=== PATIENT | male | born 1975 | race Caucasian/White ===

== ENCOUNTER 2017-12-24 21:07 | Observation (INO) ==
[2017-12-24 21:25] LABS: Bilirubin,Urine Negative (Negative); Blood,Urine Negative (Negative); Clarity,Urine Clear (Clear); Color,Urine Yellow (Yellow); Glucose,Urine (UA) Normal (Normal); Ketones,Urine 40 mg/dL (Negative); Leukocyte Esterase,Urine Negative (Negative); Nitrite,Urine Negative (Negative); PH,Urine 5.5 pH Units (5.0-8.0); Protein,Urine Negative (Neg-Trace); Specific Gravity,Urine 1.024 (1.010-1.025); Urobilinogen,Urine Normal (Normal)
--- NOTE | 2017-12-24 23:04 | Emergency Department Note ---
Disposition Clinical Impression: Pulmonary nodule Acute appendicitis Qualifiers: Acute appendicitis type: unspecified acute appendicitis type Qualified Code(s) : K35.80 - Unspecified acute appendicitis Disposition: Admitted As Inpatient Condition: Good Referrals: Kj Haley MD [Primary Care Provider] - Forms: ED Satisfaction Letter, Work/School Release Time of Disposition: 00:53 Abdominal Pain HPI - General Chief Complaint: ED Abdominal Pain Stated Complaint: abdominal pain Time Seen by Provider: 12/24/17 21:35 Source: patient Mode of arrival: ambulatory Limitations: no limitations Nursing Notes Reviewed: Yes Vital Signs Reviewed: Yes - History of Present Illness HPI Narrative: 42-year-old male otherwise healthy presents emergency department with abdominal pain. He reports a gradual onset pain located in the right lower quadrant sharp in nature nonradiating. Nothing seems to make it better. Worse with palpation and certain movements. He has taken alleve with minimal relief. Denies prior history of this. Denies injury or trauma to the area. Denies fever chills nausea or vomiting. Denies any urinary symptoms. No prior abdominal surgeries. Pt Subjective Complaint: abdominal pain Pain Scale: 8 - Related Data Home Medications Medication Instructions Recorded Confirmed Simvastatin [Zocor] 10 mg PO 12/24/17 Allergies Allergy/AdvReac Type Severity Reaction Status Date / Time No Known Allergies Allergy Verified 12/24/17 21:16 All systems ED: reviewed and negative except as stated. Review of Systems: As Per HPI Constitutional: Denies: fever, chills Cardiovascular: Denies: chest pain Respiratory: Denies: dyspnea Gastrointestinal: Reports: abdominal pain. Denies: nausea, vomiting, diarrhea Genitourinary: Denies: urgency, dysuria Musculoskeletal: Denies: back pain Integumentary: Denies: rash, abrasion Abdominal Pain PMH - Past Medical History Medical history: Reports: no medical history Psychiatric history: Reports: depression - Social History Smoking status: Never smoker Alcohol use: Reports: occasionally Drug use: Reports: none Physical Exam - General Limitations: no limitations General appearance: alert, in no apparent distress - Head Head exam: atraumatic, normocephalic, normal inspection - Eye Eye exam: Present: normal appearance, PERRL, EOMI. Absent: scleral icterus - ENT ENT exam: normal exam, normal oropharynx, mucous membranes moist - Neck Neck exam: Present: normal inspection, full ROM, trachea midline - Chest Chest inspection: Present: normal inspection, symmetric chest wall rise - Respiratory Respiratory exam: Present: normal lung sounds bilaterally - Cardiovascular Cardiovascular exam: Present: regular rate, normal rhythm, normal heart sounds - Abdominal Exam Abdominal exam: Present: soft, tenderness, guarding (Mild), normal bowel sounds , Rovsing's sign, tenderness at McBurney's Point. Absent: distention, rebound, rigidity Abdominal tenderness: Present: RLQ - Extremities Exam Extremities exam: Present: normal inspection, full ROM. Absent: tenderness, pedal edema - Back Exam Back exam: Present: normal inspection, full ROM, CVA tenderness (R). Absent: tenderness, CVA tenderness (L) - Neurological Exam Neurological exam: Present: alert, oriented X3 - Psychiatric Psychiatric exam: Present: normal affect, normal mood - Skin Skin exam: Present: warm, dry, intact, normal color. Absent: rash, cyanosis, diaphoresis Course Course Narrative: Patient presents with right lower quadrant pain 10 hours prior to arrival. Positive McBurney with Rovsing sign. No prior abdominal surgeries. No nausea or vomiting. Concern for appendicitis. Patient defers pain medication at this time. - Reevaluation(s) Reevaluation #1: The CT scanned shows acute appendicitis but also a pulmonary nodule on the right lower lobe. Patient does not smoke. He is informed of the incidental finding and recommended to follow up with his primary care physician - Consultations Consultation #1: CT confirms appendicitis. Patient continues to have some discomfort to the right lower quadrant. No distention or rigidity. I spoke to the on-call surgeon Dr. Fu, who recommend starting IV antibiotics Zosyn keeping the patient and PO as he has been NPO for the past 6 hours and will be admitted to the floor under the surgical service. Time: 00:11 Vital Signs Temperature 98.3 F 12/24/17 21:10 Pulse Rate 99 12/24/17 21:10 Respiratory Rate 18 12/24/17 21:10 Blood Pressure 161/93 12/24/17 21:10 O2 Sat by Pulse Oximetry 99 12/24/17 21:10 Temperature 98.3 F 12/24/17 21:10 Pulse Rate 79 12/25/17 00:46 Respiratory Rate 18 12/25/17 00:46 Blood Pressure 133/82 12/25/17 00:46 O2 Sat by Pulse Oximetry 94 12/25/17 00:46 Oxygen Delivery Oxygen Delivery Room Air Abdominal Pain - MDM Narrative Medical decision making narrative: Patient was discussed with my attending physician who agrees with ED management and final disposition. They independently evaluated the patient. Please refer to their attestation to this encounter for additional information. This note was generated by [employer] voice recognition software and as a result grammatical or spelling errors may occur using this program. - Medical Records Medical records reviewed: Yes I reviewed the patient's medical records. - Lab Data Lab results reviewed: Yes I reviewed the patient's lab results. Result diagrams: 12/24/17 22:58 12/24/17 22:58 Lab Results 12/24/17 12/24/17 12/24/17 Range/Units 21:15 22:58 22:58 WBC 7.9 (4.3-11.1) K/mcL RBC 4.91 (4.19-5.50) M/mcL Hgb 14.7 (12.9-16.9) g/dL Hct 43.4 (37.5-50.1) % MCV 88.4 (83.0-100.0) fL MCH 29.9 (28.0-33.3) pg MCHC 33.9 (31.6-35.5) g/dL RDW 12.8 (11.5-14.5) % Plt Count 180 (140-400) K/mcL MPV 10.7 (9.4-12.4) fL Immature Gran % 0.4 (0-4) % Seg Neutrophils % 73.3 % Lymphocytes % 16.6 % Monocytes % 8.2 % Eosinophils % 1.1 % Basophils % 0.4 % Neutrophils # 5.8 (1.6-8.9) K/mcL Lymphocytes # 1.3 (0.6-4.6) K/mcL Monocytes # 0.7 (0.0-1.3) K/mcL Eosinophils # 0.1 (0.0-0.6) K/mcL Basophils # 0.0 (0.0-0.2) K/mcL Sodium 138 (136-145) mEq/L Potassium 3.6 (3.5-5.1) mEq/L Chloride 106 (98-107) mEq/L Carbon Dioxide 23 (23-29) mEq/L BUN 18 (6-20) mg/dL Creatinine 0.83 (0.70-1.30) mg/dL Est GFR ( Amer) > 60 (> 60) Est GFR (Non-Af Amer) > 60 (> 60) BUN/Creatinine Ratio 22 (6-26) Glucose 139 H (70-105) mg/dL Calculated Osmolality 290 (280-300) Calcium 9.7 (8.6-10.3) mg/dL Urine Color Yellow (Yellow) Urine Clarity Clear (Clear) Urine pH 5.5 (5.0-8.0) pH Units Ur Specific [place] 1.024 (1.010-1.025) Urine Protein Negative (Neg-Trace) mg/dL Urine Glucose (UA) Normal (Normal) mg/dL Urine Ketones 40 H (Negative) mg/dL Urine Blood Negative (Negative) Urine Nitrite Negative (Negative) Urine Bilirubin Negative (Negative) Urine Urobilinogen Normal (Normal) mg/dL Ur Leukocyte Esterase Negative (Negative) Ur Culture Indicated? NO (NO) - Radiology Data Radiology results reviewed: Yes I reviewed the patient's radiology results. Abdomen/Pelvis CT 12/24/17 22:35 IMPRESSION: 1. Appendicitis. 2. Right lower lobe 1.2 x 2.4 cm pulmonary nodule versus scar. Recommend follow-up: In a low-risk patient, consider CT at 3 months, PET/CT, or tissue sampling. In a high-risk patient, consider CT at 3 months, PET/CT, or tissue sampling. D/ / Soren Yanez MD / Soren Yanez MD Interpreting Provider: Soren Yanez MD
[2017-12-24 23:10] LABS: Basophils % 0.4 %; Eosinophils # 0.1 K/mcL (0.0-0.6); Eosinophils % 1.1 %; Hematocrit 43.4 % (37.5-50.1); Hemoglobin 14.7 g/dL (12.9-16.9); Immature Granulocytes % 0.4 % (0-4); Lymphocytes # 1.3 K/mcL (0.6-4.6); Lymphocytes % 16.6 %; Mean Corpuscular HGB Conc 33.9 g/dL (31.6-35.5); Mean Corpuscular Hemoglobin 29.9 pg (28.0-33.3); Mean Corpuscular Volume 88.4 fL (83.0-100.0); Mean Platelet Volume 10.7 fL (9.4-12.4); Monocytes # 0.7 K/mcL (0.0-1.3); Monocytes % 8.2 %; Neutrophils # 5.8 K/mcL (1.6-8.9); Platelet Count 180 K/mcL (140-400); Red Blood Count 4.91 M/mcL (4.19-5.50); Red Cell Distribution Width 12.8 % (11.5-14.5); Segmented Neutrophils % 73.3 %
[2017-12-24 23:27] LABS: BUN/Creatinine Ratio 22 (6-26); Blood Urea Nitrogen 18 mg/dL (6-20); Calcium 9.7 mg/dL (8.6-10.3); Carbon Dioxide 23 mEq/L (23-29); Chloride 106 mEq/L (98-107); Glucose 139 mg/dL (70-105); Osmolality,Calculated 290 (280-300); Potassium 3.6 mEq/L (3.5-5.1); Sodium 138 mEq/L (136-145); eGFR For Non-African Americans > 60 (> 60)
[2017-12-25] MEDS ORDERED: *HR* FentaNYL (PF) 100 MCG/2 ML VIAL IVP ONE (00:02)
[2017-12-25] MEDS ORDERED: Piperacillin/Tazobactam 3.375 GM in 0.9 % Sodium Chloride Mini Bag 100 ML IVPB ONE (00:10)
--- NOTE | 2017-12-25 00:17 | Emergency Department Note ---
Disposition Clinical Impression: Pulmonary nodule Acute appendicitis Qualifiers: Acute appendicitis type: unspecified acute appendicitis type Qualified Code(s) : K35.80 - Unspecified acute appendicitis Disposition: Admitted As Inpatient Condition: Good General Adult HPI - General Chief complaint: ED Abdominal Pain Stated complaint: abdominal pain Time Seen by Provider: 12/24/17 21:35 Source: patient Mode of arrival: ambulatory Limitations: no limitations - History of Present Illness Pain Scale: 8 - Related Data Home Medications Medication Instructions Recorded Confirmed Simvastatin [Zocor] 20 mg PO HS 12/25/17 12/25/17 Allergies Allergy/AdvReac Type Severity Reaction Status Date / Time No Known Allergies Allergy Verified 12/24/17 21:16 Constitutional: Denies: fever, chills Cardiovascular: Denies: chest pain Respiratory: Denies: dyspnea Gastrointestinal: Reports: abdominal pain. Denies: nausea, vomiting, diarrhea Genitourinary: Denies: urgency, dysuria Musculoskeletal: Denies: back pain Integumentary: Denies: rash, abrasion Past Medical History - Past Medical History Medical history: Reports: no medical history Psychiatric history: Reports: depression - Social History Smoking Status: Never smoker Alcohol use: Reports: occasionally Drug use: Reports: none Physical Exam - General Limitations: no limitations General appearance: alert, in no apparent distress Course Vital Signs Temperature 98.3 F 12/24/17 21:10 Pulse Rate 99 12/24/17 21:10 Respiratory Rate 18 12/24/17 21:10 Blood Pressure 161/93 12/24/17 21:10 O2 Sat by Pulse Oximetry 99 12/24/17 21:10 Temperature 98.1 F 12/25/17 02:05 Pulse Rate 70 12/25/17 02:05 Respiratory Rate 15 12/25/17 02:05 Blood Pressure 118/76 12/25/17 02:05 O2 Sat by Pulse Oximetry 96 12/25/17 02:28 Oxygen Delivery Oxygen Delivery Room Air Medical Decision Making - Lab Data Result diagrams: 12/24/17 22:58 12/24/17 22:58 Lab Results 12/24/17 12/24/17 12/24/17 Range/Units 21:15 22:58 22:58 WBC 7.9 (4.3-11.1) K/mcL RBC 4.91 (4.19-5.50) M/mcL Hgb 14.7 (12.9-16.9) g/dL Hct 43.4 (37.5-50.1) % MCV 88.4 (83.0-100.0) fL MCH 29.9 (28.0-33.3) pg MCHC 33.9 (31.6-35.5) g/dL RDW 12.8 (11.5-14.5) % Plt Count 180 (140-400) K/mcL MPV 10.7 (9.4-12.4) fL Immature Gran % 0.4 (0-4) % Seg Neutrophils % 73.3 % Lymphocytes % 16.6 % Monocytes % 8.2 % Eosinophils % 1.1 % Basophils % 0.4 % Neutrophils # 5.8 (1.6-8.9) K/mcL Lymphocytes # 1.3 (0.6-4.6) K/mcL Monocytes # 0.7 (0.0-1.3) K/mcL Eosinophils # 0.1 (0.0-0.6) K/mcL Basophils # 0.0 (0.0-0.2) K/mcL Sodium 138 (136-145) mEq/L Potassium 3.6 (3.5-5.1) mEq/L Chloride 106 (98-107) mEq/L Carbon Dioxide 23 (23-29) mEq/L BUN 18 (6-20) mg/dL Creatinine 0.83 (0.70-1.30) mg/dL Est GFR ( Amer) > 60 (> 60) Est GFR (Non-Af Amer) > 60 (> 60) BUN/Creatinine Ratio 22 (6-26) Glucose 139 H (70-105) mg/dL Calculated Osmolality 290 (280-300) Calcium 9.7 (8.6-10.3) mg/dL Urine Color Yellow (Yellow) Urine Clarity Clear (Clear) Urine pH 5.5 (5.0-8.0) pH Units Ur Specific [place] 1.024 (1.010-1.025) Urine Protein Negative (Neg-Trace) mg/dL Urine Glucose (UA) Normal (Normal) mg/dL Urine Ketones 40 H (Negative) mg/dL Urine Blood Negative (Negative) Urine Nitrite Negative (Negative) Urine Bilirubin Negative (Negative) Urine Urobilinogen Normal (Normal) mg/dL Ur Leukocyte Esterase Negative (Negative) Ur Culture Indicated? NO (NO) Attestation Statement - Attestation Attestation: I examined this patient and my medical decision-making was reviewed with the Resident Physician. I agree with the documented findings, disposition and treatment plan as described except to the extent set forth below. Sx started a little over 12 hours ago, decreased appetite, RLQ pain/tenderness. One episode of transient nausea without vomiting. Appy by CT. Surgery consulted. Last po intake 1999, no prior abdominal surgeries.
[2017-12-25] MEDS ORDERED: 0.9 % Sodium Chloride 1,000 ML IVC SCH ×2 (03:30→18:32)
[2017-12-25] MEDS ORDERED: OXYCODONE Oral CONC 10 MG/0.5 ML ORAL.SYG SL SCH (04:00)
[2017-12-25] MEDS ORDERED: Ondansetron 4 MG/2 ML VIAL IVP SCH (06:00)
[2017-12-25] MEDS ORDERED: Ondansetron 4 MG/2 ML VIAL IVP PRN ×2 (06:00→18:32)
[2017-12-25] MEDS: Piperacillin/Tazobactam 3.375 GM in 0.9 % Sodium Chloride Mini Bag 100 ML IVPB SCH ×2 (08:46→16:00)
[2017-12-25] MEDS ORDERED: Pantoprazole 40 MG VIAL IVP SCH (09:00)
--- NOTE | 2017-12-25 09:03 | General Surg History&Physical ---
<Trenton Prakash W - Last Filed: 12/25/17 09:00> Date of Encounter: 12/25/17 Time of Encounter: 09:00 Assessment and Plan (1) Acute appendicitis Current Visit: Yes Status: Acute CT scan showed acute appendicitis supported by history and physical exam findings Surgical intervention is recommended in the next 24-48 hours NPO continue appropriate pain control IV Zosyn IV fluids IV protonix Zofran PRN for nausea consent for Appendectomy obtained The assessment and plan as outlined above was discussed with the patient and/or family members who expressed understanding and agreement. All questions were answered. Qualifiers: Acute appendicitis type: unspecified acute appendicitis type Qualified Code (s): K35.80 - Unspecified acute appendicitis History of Present Illness Chief complaint: RLQ pain HPI: Mr. Ayala is a 42 year old male who presented to the ED yesterday night with RLQ pain. The pain increased over the day until the pain was consistently 8/10. he then went to the ED where a CT showed appendicitis. Patient had non radiating RLQ pain. worse with movement and worse with palpation. Nothing made it better. Denies n/v fever or chills. Currently the patient is resting in bed with slight discomfort after receiving pain control. 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 Past Med Surg Social Fam HX - Past Medical History Medical history: no medical history Psychiatric history: depression - Past Surgical History Additional surgical history: R wrist. L knee - Social History Smoking Status: Never smoker Alcohol use: occasionally Drug use: none - Family History Mother Living Status: Still Living Hx Family Cardiac Disorders: Yes Father Living Status: Still Living Hx Family Cardiac Disorders: Yes (Hypertension) Hx Family GI Disorders: Yes (High Cholesterol) Medications and Allergies Simvastatin [Zocor] 20 mg PO HS 12/25/17 [History] 3 Allergy/AdvReac Type Severity Reaction Status Date / Time No Known Allergies Allergy Verified 12/25/17 11:44 Review of Systems All systems PM: The remainder of the systems were reviewed and are negative - Constitutional no chills, no fatigue, no fever(s), no night sweats, no weakness - EENT Nose, mouth and throat: nasal congestion, no dizziness - Cardiovascular no chest pain, no chest pain at rest, no chest pain with activity, no dyspnea on exertion - Respiratory no cough, no dyspnea on exertion - Gastrointestinal as per HPI - Genitourinary no difficulty urinating - Musculoskeletal no muscle weakness, no myalgias - Neurological no dizziness General Surgery Exam Initial Vital Signs Temp Pulse Resp BP Pulse Ox 98.3 F 99 18 161/93 99 12/24/17 21:10 12/24/17 21:10 12/24/17 21:10 12/24/17 21:10 12/24/17 21:10 - General physical appearance well developed, well nourished, no distress, moderate pain - Eyes PERRL, normal ocular movement - ENT atraumatic, normocephalic, CN 2-12 grossly intact - Neck no masses - Respiratory normal expansion, normal respiratory effort, clear to percussion, clear to auscultation - Cardiovascular Cardiovascular exam: Present: RRR, no murmurs/rubs/gallops - Abdomen Abdomen general surgery: Present: bowel sounds present, soft, tender, guarding, rebound Abdominal Tenderness: Present: RLQ - Integumentary Integumentary general surgery: Present: warm and dry, no abnormal pigmentation - Neurologic Present: CN 2-12 grossly intact, normal coordination, normal sensation - Musculoskeletal Present: normal gait, normal posture - Psychiatric Psychiatric general surgery: Present: appropriate, oriented to person, oriented to place, oriented to time, speech is normal, memory intact Results - Labs 12/24/17 22:58 12/24/17 22:58 Abnormal lab results Glucose 139 mg/dL (70-105) H 12/24/17 22:58 Urine Ketones 40 mg/dL (Negative) H 12/24/17 21:15 All other labs normal. <Debora Fu - Last Filed: 12/25/17 13:12> Date of Encounter: 12/25/17 Assessment and Plan (1) Acute appendicitis Current Visit: Yes Status: Acute The assessment and plan as outlined above was discussed with the patient and/or family members who expressed understanding and agreement. All questions were answered. discussed wiht patient CT, labs and PE findings and that he has acute appendicitis [facility] pain control continue zosyn plan OR in next 12 hrs, risks and benefits of laparoscopic appendectomy possible open discussed with patient and he wishes to proceed Qualifiers: Acute appendicitis type: unspecified acute appendicitis type Qualified Code (s): K35.80 - Unspecified acute appendicitis (2) Pulmonary nodule Current Visit: Yes Status: Acute The assessment and plan as outlined above was discussed with the patient and/or family members who expressed understanding and agreement. All questions were answered. patient will need to follow up with his PCP for further followup History of Present Illness HPI: Mr. Ayala is a 42 year old male with RLQ pain that began yesterday morning around 1130 am. The pain at first was dull and progressively worsened in intensity throughout the day. He had no nausea or emesis. No diarrhea. No dysuria. No fevers, chills but had some sweats at work. He presented to ED which CT was done showing acute uncomplicated appendicitis. WBC wnl. Past Med Surg Social Fam HX - Past Medical History Source: patient Medical history: hyperlipidemia Psychiatric history: depression - Social History Smoking Status: Never smoker Drug use: none Occupational status: employed Current living situation: Home - Independent Review of Systems All systems PM: reviewed and no additional remarkable complaints except as stated All systems PM: The remainder of the systems were reviewed and are negative General Surgery Exam Initial Vital Signs Temp Pulse Resp BP Pulse Ox 98.3 F 99 18 161/93 99 12/24/17 21:10 12/24/17 21:10 12/24/17 21:10 12/24/17 21:10 12/24/17 21:10 - General physical appearance well developed, well nourished, no distress - Eyes PERRL, normal ocular movement - ENT normal mucosa, normocephalic - Neck trachea midline - Respiratory normal expansion, clear to auscultation - Cardiovascular Cardiovascular exam: Present: RRR, no murmurs/rubs/gallops - Abdomen Abdomen general surgery: Present: bowel sounds present, soft, tender. Absent: distended, guarding, rebound Abdominal Tenderness: Present: RLQ - Integumentary Integumentary general surgery: Present: warm and dry, no abnormal pigmentation - Neurologic Present: CN 2-12 grossly intact - Musculoskeletal Present: normal posture - Psychiatric Psychiatric general surgery: Present: A&Ox3 Results - Labs 12/24/17 22:58 12/24/17 22:58 Abnormal lab results Glucose 139 mg/dL (70-105) H 12/24/17 22:58 Urine Ketones 40 mg/dL (Negative) H 12/24/17 21:15 All other labs normal. - Imaging CT scan - abdomen: report reviewed, image reviewed CT scan - pelvis: report reviewed, image reviewed - Attending Attestation I examined this patient and my medical decision-making was reviewed with the Resident Physician. I agree with the documented findings, disposition and treatment plan as described except to the extent set forth below.
[2017-12-25] MEDS: OXYCODONE Oral CONC 10 MG/0.5 ML ORAL.SYG SL PRN ×2 (09:39→14:43)
[2017-12-25] MEDS ORDERED: Oxymetazoline Nasal SPRAY BOTTLE NS PRN (09:44)
[2017-12-25] MEDS ORDERED: *HR* FentaNYL (PF) 100 MCG/2 ML VIAL ONE (15:38)
[2017-12-25] MEDS ORDERED: *HR* Midazolam HCl 2 MG/2 ML VIAL ONE (15:38)
[2017-12-25] MEDS ORDERED: *HR* Propofol 200 MG/20 ML VIAL IVP ONE (15:38)
[2017-12-25] MEDS ORDERED: Lidocaine -MPF 2% 2 ML VIAL ONE (15:39)
[2017-12-25] MEDS ORDERED: Ondansetron 4 MG/2 ML VIAL ONE (15:39)
[2017-12-25] MEDS ORDERED: Dexamethasone 4 MG/ML VIAL ONE (15:39)
--- NOTE | 2017-12-25 15:39 | Discharge Summary ---
<Debora Fu - Last Filed: 12/26/17 08:50> Orders not resulted at time of discharge: Pending orders 12/25/17 17:19 Surgical Pathology [PTH] Routine Date of Encounter: 12/26/17 - Discharge Diagnosis (1) Acute appendicitis Priority: Primary Status: Acute Qualifiers: Acute appendicitis type: unspecified acute appendicitis type Qualified Code (s): K35.80 - Unspecified acute appendicitis (2) Pulmonary nodule Priority: Secondary Status: Acute General Surgery Exam Initial Vital Signs Temp Pulse Resp BP Pulse Ox 98.3 F 99 18 161/93 99 12/24/17 21:10 12/24/17 21:10 12/24/17 21:10 12/24/17 21:10 12/24/17 21:10 - General physical appearance well developed, well nourished, no distress - Eyes PERRL, normal ocular movement - ENT normal mucosa, normocephalic - Neck trachea midline - Respiratory normal expansion, normal respiratory effort - Cardiovascular Cardiovascular exam: Present: RRR - Abdomen Abdomen general surgery: Present: bowel sounds present, soft, tender ( appropriate post op tenderness). Absent: guarding, rebound - Incision Incision: Present: clean and dry, intact - Integumentary Integumentary general surgery: Present: warm and dry, no abnormal pigmentation - Neurologic Present: CN 2-12 grossly intact - Musculoskeletal Present: normal posture - Psychiatric Psychiatric general surgery: Present: A&Ox3, oriented to person, speech is normal - Hospital Course Hospital course: patient is aware of CT finding of 2.4 cm RLL nodule, am obtaining dedicated CT chest as outpatient and patient will followup with PCP as outpatient regarding this - Time Spent with Patient Total time spent providing and/or coordinating discharge services: - Discharge Medications Prescriptions: OxyCODONE/APAP 5/325 [Percocet 5/325 MG] 1 each PO Q6HR PRN 7 Days #28 tablet PRN Reason: Pain Docusate Sodium [Colace] 100 mg PO BID #30 capsule Ibuprofen 800 mg PO Q8H PRN #30 tablet PRN Reason: Pain Home Medications: Docusate Sodium [Colace] 100 mg PO BID #30 capsule 12/25/17 [Rx] Ibuprofen 800 mg PO Q8H PRN #30 tablet 12/25/17 [Rx] OxyCODONE/APAP 5/325 [Percocet 5/325 MG] 1 each PO Q6HR PRN 7 Days #28 tablet [Rx] Simvastatin [Zocor] 20 mg PO HS 12/25/17 [History] Allergies/Adverse Reactions: 3 Allergy/AdvReac Type Severity Reaction Status Date / Time No Known Allergies Allergy Verified 12/25/17 11:44 Date of admission: 12/25/17 01:21 Primary care physician: Kj Haley MD Labs on day of discharge: Labs from last 24 hours 12/26/17 12/25/17 12/25/17 07:49 12:22 05:26 WBC 10.0 RBC 4.64 Hgb 13.8 Hct 42.0 MCV 90.5 MCH 29.7 MCHC 32.9 RDW 12.8 Plt Count 179 MPV 10.8 Immature Gran % 0.3 Seg Neutrophils % 77.3 Lymphocytes % 12.1 Monocytes % 9.7 Eosinophils % 0.4 Basophils % 0.2 Neutrophils # 7.7 Lymphocytes # 1.2 Monocytes # 1.0 Eosinophils # 0.0 Basophils # 0.0 POC Glucose 90 91 - Patient Status Disposition: Home, Self-Care Condition: Good - Discharge Instructions Instructions: Laparoscopic Appendectomy (DC) Follow Up With: Kj Haley MD [Primary Care Provider] - Kdai Julien CNP [Advanced Practice Nurse] - 01/06/18 1:30 pm Forms: Inpatient Work/School Release Additional Instructions: General Surgical Discharge Instructions 1. No pushing, pulling, or lifting greater than 15 lbs for 2-4 weeks (depending upon procedure). 2. You may shower beginning today, but no tub baths, soaking, or swimming for 2 weeks. 3. You may resume driving when you are off narcotics and are safe to react in a car. 4. Take ibuprofen every 8 hours for discomfort. If this does not relieve discomfort, you may take the as needed Percocet. Take narcotics as directed. Do not take more narcotics then directed and do not share your narcotics with any other person. Do not drink alcohol while on narcotics. 5. Take stool softeners (Colace) or a water based laxative (Miralax) while taking narcotics. You may hold for loose stools. 6. Report any fevers greater than 100.5F, increase abdominal discomfort, drainage that looks like pus, increased redness or pain at the surgical site, or any vomiting. 7. Report any pain in the calves, shortness of breath, or rapid heartbeat. 8. Follow-up in the office as directed. 9. If you were prescribed antibiotics, do not stop them without talking to your provider. - Attending Attestation I have personally performed a face to face evaluation on this patient. I have reviewed and agree with the care plan. History and Exam by me shows: <Kadi Julien - Last Filed: 12/26/17 09:10> Orders not resulted at time of discharge: Pending orders 12/26/17 04:00 Basic Metabolic Panel AM 0400 Complete Blood Count [HEME] AM 0400 Date of Encounter: 12/26/17 Time of Encounter: 07:00 - Discharge Diagnosis (1) Acute appendicitis Priority: Primary Status: Acute Qualifiers: Acute appendicitis type: unspecified acute appendicitis type Qualified Code (s): K35.80 - Unspecified acute appendicitis General Surgery Exam Initial Vital Signs Temp Pulse Resp BP Pulse Ox 98.3 F 99 18 161/93 99 12/24/17 21:10 12/24/17 21:10 12/24/17 21:10 12/24/17 21:10 12/24/17 21:10 Vital Signs Temp Pulse Resp BP Pulse Ox 12/26/17 06:56 98.1 F 70 14 118/69 97 12/26/17 03:43 98.4 F 85 16 110/69 96 12/25/17 23:46 97.8 F 82 16 116/72 95 12/25/17 19:03 97.6 F 76 16 117/75 95 12/25/17 18:22 97.7 F 69 14 126/79 96 12/25/17 18:04 98.0 F 75 16 128/76 97 12/25/17 17:54 77 16 131/80 97 12/25/17 17:44 71 14 137/90 97 12/25/17 17:34 97.8 F 76 14 134/85 98 12/25/17 15:21 98.3 F 83 16 152/76 98 12/25/17 12:24 98.5 F 70 15 122/72 95 12/25/17 09:10 97 Intake and Output 12/25/17 12/26/17 12/26/17 23:59 07:59 15:59 Intake Total 200 / 200 300 / 300 Output Total 1000 / 1000 Balance 197 / 197 -700 / -700 Intake: IV Fluids 100 / 100 Zosyn 3.375 GM In 0.9 % Sodium 100 / 100 Chloride (Mini-Bag +) 100 ML @ 25 mls/hr IVPB Q8HR [facility] Rx#: [id number] Oral 200 / 200 200 / 200 Output: Urine 1000 / 1000 Estimated Blood Loss Other: Meal npo dinner Weight 86.6 kg Patient Weight 12/26/17 23:59 Weight 86.6 kg VITAL SIGNS: Reviewed. See [facility] GENERAL: In no apparent distress. HEENT: Normocephalic, atraumatic, extraocular motions intact, oropharynx is pink and moist, there is no neck adenopathy or JVD noted. CHEST/RESPIRATORY: The thorax is free from signs of trauma. Lung sounds: clear to auscultation, normal respiratory effort CARDIAC: Regular rate and rhythm. Normal S1 and S2, without murmurs, gallops, or rubs. VASCULAR: No Edema. 2+ peripheral pulses. ABDOMEN: soft, expected postoperative tenderness, hypoactive bowel sounds INCISION: Surgical incision is clean, dry, and intact. There are no signs of cellulitis or infection noted. MUSCULOSKELETAL: Good range of motion of all major joints. Extremities without clubbing, cyanosis or edema. NEUROLOGIC EXAM: Alert and oriented x 3. Speech normal. Follows commands. PSYCHIATRIC: Mood normal. SKIN: No rash or lesions. Multiple tattoos/arm sleeves noted - Hospital Course Hospital course: Mr. Ayala is a 42 year old male who presented on 12/24/2017 with complaints of right lower quadrant. His CT and exam are consistent with acute appendicitis. He was taken to the operating room where he underwent an uncomplicated laparoscopic appendectomy on 12/25/2017. He is ambulating avoiding without difficulty, tolerating a diet without nausea or vomiting, vital signs are stable , and he is afebrile. We will begin discharge planning to home with a follow- up in the office in approximately 2 weeks. 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 He will call our office if he desires to return to work before January 12, 2018. - Time Spent with Patient Total time spent providing and/or coordinating discharge services: Date of admission: 12/25/17 01:21 Primary care physician: Kj Haley MD Discharging clinician: Debora Julien) Anticipated date of discharge: 12/26/17 - Patient Status Functional capacity at discharge: independent ambulation Overall status at discharge: patient is progressing back to baseline - Diet and Activity Activity: increase activity as tolerated Diet: advance to your usual diet
[2017-12-25] MEDS ORDERED: Neostigmine Methylsulfate 3 MG/3 ML SYRINGE ONE (15:41)
--- NOTE | 2017-12-25 16:20 | Anesthesia Evaluation PreOp ---
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: Denies Any Significant HX Other Medical History: Denies Any Significant HX Anesthesia History: No Prior Anesthetic Complications, Past Anesthesia (R-wrist pinning, L-knee scope, [place] teeth) Alcohol Use: occasionally Drug use: none Medications and Allergies Docusate Sodium [Colace] 100 mg PO BID #30 capsule 12/25/17 [Rx] Ibuprofen 800 mg PO Q8H PRN #30 tablet 12/25/17 [Rx] OxyCODONE/APAP 5/325 [Percocet 5/325 MG] 1 each PO Q6HR PRN 7 Days #28 tablet [Rx] Simvastatin [Zocor] 20 mg PO HS 12/25/17 [History] 3 Allergy/AdvReac Type Severity Reaction Status Date / Time No Known Allergies Allergy Verified 12/25/17 11:44 - Meds/Allergy Pre-op Review Medications Reviewed: Yes Allergies Reviewed: Yes Beta Blockers on Current Med List: No Anesthesia Results - Labs 12/24/17 22:58 12/24/17 22:58 Anesthesia Exam Vital Signs Temp Pulse Resp BP Pulse Ox 12/25/17 15:21 98.3 F 83 16 152/76 98 12/25/17 12:24 98.5 F 70 15 122/72 95 12/25/17 09:10 97 12/25/17 08:00 98.3 F 75 14 110/70 97 12/25/17 02:28 96 12/25/17 02:05 98.1 F 70 15 118/76 96 12/25/17 01:31 18 113/66 12/25/17 00:46 79 18 133/82 94 12/24/17 21:10 98.3 F 99 18 161/93 99 Intake and Output 12/25/17 12/25/17 12/25/17 07:59 15:59 23:59 Intake Total 0 / 0 1100 / 1100 Output Total 0 / 0 850 / 850 Balance 0 / 0 250 / 250 Intake: IV Fluids 1100 / 1100 0.9 % Sodium Chloride 1,000 ML 1000 / 1000 @ 120 mls/hr IVC .Q8H20M [facility] Rx #:[id number] Zosyn 3.375 GM In 0.9 % Sodium 100 / 100 Chloride (Mini-Bag +) 100 ML @ 25 mls/hr IVPB Q8HR [facility] Rx#: [id number] Oral 0 / 0 0 / 0 Output: Urine 0 / 0 850 / 850 Other: Meal NPO Percent of Meal Consumed 0% # Bowel Movements 0 Weight 86.636 kg Blood Glucose* 91 90 Patient Weight 12/25/17 23:59 Weight 86.636 kg Height: 5'11" Weight: 191# BMI = 27 NPO (# of Hours): MNOc Pain Scale Used: Numeric (1 - 10) - HEENT Pupil (Motor): Pupils equal, EOMI Mallampati: II Teeth: Normal Oral Opening: Greater than 3 - RAT FARMER LOC: Oriented RAT FARMER Motor: Normal RUE, Normal LUE, Normal RLE, Normal LLE, Normal Face RAT FARMER Sensory: Normal: RUE, LUE, RLE, LLE, Face - Cardiac Rhythm: Regular Murmur: None - Pulmonary Breath Sounds: bilateral Clear Respiratory Effort: Symmetrical Anesthesia Assess/Plan ASA Score: 2 Modified Sung Scale for Level of Consciousness: Cooperative, oriented, and tranquil Anesthetic Plan: General Monitoring Plan: Standard Monitors Recovery Plan: PACU Anes Supervising Prov Stmt: Pt seen/evaluated, R&B discussed, questions answered and consent obtained. Olena Naranjo MD
[2017-12-25] MEDS ORDERED: Acetaminophen IV 1,000 MG/100 ML INFUS..BTL ONE (16:32)
[2017-12-25] MEDS ORDERED: KETAMINE HCL 50 MG/ML SYRINGE IV ONE (16:33)
[2017-12-25] MEDS ORDERED: *HR* Labetalol 20 MG/4 ML SYRINGE IVP PRN (17:02)
[2017-12-25] MEDS ORDERED: *HR* Promethazine 25 MG/ML VIAL IVP PRN (17:02)
[2017-12-25] MEDS ORDERED: Dexamethasone 4 MG/ML VIAL IVP ONE (17:02)
[2017-12-25] MEDS ORDERED: Ondansetron 4 MG/2 ML VIAL IVP ONE (17:02)
[2017-12-25] MEDS ORDERED: Ketorolac 30 MG/ML VIAL ONE (17:04)
--- NOTE | 2017-12-25 17:29 | Operative Note ---
Date of procedure: 12/25/17 Pre-op diagnosis: Acute appendicitis Post-op diagnosis: same Procedure: Laparoscopic appendectomy Complications: none immediate Anesthesia: GETA, local Local Anesthetics: 0.5% Sensorcaine HCL SubQ (cc) Surgeon: Debora Fu Was there an dietary assistant present: No Hogshead Mat Assembler Other: Lukas Alexander Estimated blood loss (cc): 3 Specimen: appendix Condition: stable Disposition: PACU Procedure in Detail: The patient was brought into the operating suite and placed supine on the operating table. Sign-in was performed and everyone was in agreement. Anesthesia was induced and patient was endotracheally intubated by anesthesia without incident. An OG tube was placed by anesthesia. The abdomen was prepped and draped in the usual sterile fashion. A timeout was performed and again everyone was in agreement. A supraumbilical incision was made through the skin and the subcutaneous tissue with an 11 blade. Towel clamps were placed on either side of the umbilicus for retraction. S-retractors were used to dissect down to the anterior abdominal wall linea alba fascia. A Veress needle was placed into this incision and a water drop test confirmed placement and the abdomen was insufflated. We then entered the abdomen with the 5 mm 0 degree laparoscope on a 5 mm X-cassius trocar. The area under entry was visualized and there was no bleeding and no apparent bowel injury. We placed a suprapubic 5 mm port under direct visualization after first incising the skin with an 11 blade. The laparoscope was placed through this and we exchanged the supraumbilical port for a 12 mm port under direct visualization. We then placed another 5 mm port in the left lower quadrant position under direct visualization after first incising the skin with an 11 blade. The patient was placed in slight Trendelenburg left side down position. The cecum was located as was the appendix. The appendix was grasped and retracted anteriorly and caudally with a laparoscopic Danie. A [place] was used to dissect between the mesoappendix and the appendix at the base of the cecum. The mesoappendix was transected with a laparoscopic flex-ex ETS stapler using a white load. The appendix was transected at the base of the cecum with the same stapler utilizing a blue load. The appendix was placed in a laparoscopic Endo Catch bag and removed via the supraumbilical incision site. Both staple lines were evaluated and there was no bleeding and both staple lines were intact. The area was irrigated with sterile saline which was then suctioned free from the abdomen. The insufflation was suctioned free from the abdomen and all trochars removed. We closed the abdominal wall at the supraumbilical incision site with an 0 Vicryl [id number] stitch. A 30 cc of 0.5% Marcaine was injected subcutaneously at the 3 port sites. The skin at the two 5 mm port sites was closed with 4-0 Monocryl interrupted subcuticular stitches. The skin at the supraumbilical incision site was closed with a 4-0 Monocryl running subcuticular stitch. Steri-Strips were applied to the wounds. The patient was extubated in the OR and tolerated the procedure well and was taken to PACU after all lap and instrument counts were correct at the end of the case.
[2017-12-25] MEDS: *HR* HYDROmorphone (PF) 1 MG/ML SYRINGE IVP PRN ×2 (17:38→17:50)
--- NOTE | 2017-12-25 17:59 | Anesthesia Evaluation Post Op ---
Date of Encounter: 12/25/17 Time of Encounter: 17:59 - Vital Signs Vital Signs: Vital Signs/O2 Sat/Glucose, Most Recent Temp Pulse Resp BP Pulse Ox 97.8 F 77 16 131/80 97 12/25/17 17:34 12/25/17 17:54 12/25/17 17:54 12/25/17 17:54 12/25/17 17:54 Blood Glucose* 90 - Lungs Lungs: Clear Ascult./Percussion - Airway Airway: Non-obstructed - Cardiovascular Regular Rate, Baseline Rhythm - Mental Status Mental Status: Alert & Oriented, Answers Appropriately - Pain Pain Scale: 1 Pain Scale used: Numeric (1 - 10) - Nausea Vomiting Nausea Vomiting: Not Present - Hydration Hydration: Tolerates oral liquids - Discharge PostOp Status: Transfer Patient to floor
[2017-12-25] MEDS ORDERED: OXYCODONE Oral CONC 10 MG/0.5 ML ORAL.SYG SL PRN (18:32)
[2017-12-25] MEDS: *HR* OxyCODONE/APAP 5/325 TABLET PO PRN (22:53)
[2017-12-26] MEDS: Piperacillin/Tazobactam 3.375 GM in 0.9 % Sodium Chloride Mini Bag 100 ML IVPB SCH ×2 (00:27→09:10)
[2017-12-26 07:00] VITALS: BP 118/69
[2017-12-26 08:23] LABS: Basophils % 0.2 %; Eosinophils % 0.4 %; Hemoglobin 13.8 g/dL (12.9-16.9); Immature Granulocytes % 0.3 % (0-4); Lymphocytes # 1.2 K/mcL (0.6-4.6); Lymphocytes % 12.1 %; Mean Corpuscular HGB Conc 32.9 g/dL (31.6-35.5); Mean Corpuscular Hemoglobin 29.7 pg (28.0-33.3); Mean Corpuscular Volume 90.5 fL (83.0-100.0); Mean Platelet Volume 10.8 fL (9.4-12.4); Monocytes % 9.7 %; Neutrophils # 7.7 K/mcL (1.6-8.9); Platelet Count 179 K/mcL (140-400); Red Blood Count 4.64 M/mcL (4.19-5.50); Red Cell Distribution Width 12.8 % (11.5-14.5); Segmented Neutrophils % 77.3 %
[2017-12-26] MEDS ORDERED: Pantoprazole 40 MG VIAL IVP SCH (09:00)
[2017-12-26] MEDS: *HR* OxyCODONE/APAP 5/325 TABLET PO PRN (09:09)
--- NOTE | 2017-12-26 09:10 | Discharge Summary ---
Orders not resulted at time of discharge: Pending orders 12/25/17 17:19 Surgical Pathology [PTH] Routine Date of Encounter: 12/26/17 Time of Encounter: 07:00 - Discharge Diagnosis (1) Acute appendicitis Status: Acute Qualifiers: Acute appendicitis type: unspecified acute appendicitis type Qualified Code (s): K35.80 - Unspecified acute appendicitis General Surgery Exam Initial Vital Signs Temp Pulse Resp BP Pulse Ox 98.3 F 99 18 161/93 99 12/24/17 21:10 12/24/17 21:10 12/24/17 21:10 12/24/17 21:10 12/24/17 21:10 - Hospital Course Hospital course: Mr. Ayala is a 42 year old male - Time Spent with Patient Total time spent providing and/or coordinating discharge services: - Discharge Medications Prescriptions: OxyCODONE/APAP 5/325 [Percocet 5/325 MG] 1 each PO Q6HR PRN 7 Days #28 tablet PRN Reason: Pain Docusate Sodium [Colace] 100 mg PO BID #30 capsule Ibuprofen 800 mg PO Q8H PRN #30 tablet PRN Reason: Pain Home Medications: Docusate Sodium [Colace] 100 mg PO BID #30 capsule 12/25/17 [Rx] Ibuprofen 800 mg PO Q8H PRN #30 tablet 12/25/17 [Rx] OxyCODONE/APAP 5/325 [Percocet 5/325 MG] 1 each PO Q6HR PRN 7 Days #28 tablet [Rx] Simvastatin [Zocor] 20 mg PO HS 12/25/17 [History] Allergies/Adverse Reactions: 3 Allergy/AdvReac Type Severity Reaction Status Date / Time No Known Allergies Allergy Verified 12/25/17 11:44 Date of admission: 12/25/17 01:21 Primary care physician: Kj Haley MD Discharging clinician: Debora Julien) Labs on day of discharge: Labs from last 24 hours 12/26/17 12/25/17 12/25/17 07:49 12:22 05:26 WBC 10.0 RBC 4.64 Hgb 13.8 Hct 42.0 MCV 90.5 MCH 29.7 MCHC 32.9 RDW 12.8 Plt Count 179 MPV 10.8 Immature Gran % 0.3 Seg Neutrophils % 77.3 Lymphocytes % 12.1 Monocytes % 9.7 Eosinophils % 0.4 Basophils % 0.2 Neutrophils # 7.7 Lymphocytes # 1.2 Monocytes # 1.0 Eosinophils # 0.0 Basophils # 0.0 POC Glucose 90 91 - Patient Status Disposition: Home, Self-Care Condition: Good - Discharge Instructions Instructions: Laparoscopic Appendectomy (DC) Follow Up With: Kj Haley MD [Primary Care Provider] - Kadi Julien CNP [Advanced Practice Nurse] - 01/06/18 1:30 pm Forms: Inpatient Work/School Release Additional Instructions: General Surgical Discharge Instructions 1. No pushing, pulling, or lifting greater than 15 lbs for 2-4 weeks (depending upon procedure). 2. You may shower beginning today, but no tub baths, soaking, or swimming for 2 weeks. 3. You may resume driving when you are off narcotics and are safe to react in a car. 4. Take ibuprofen every 8 hours for discomfort. If this does not relieve discomfort, you may take the as needed Percocet. Take narcotics as directed. Do not take more narcotics then directed and do not share your narcotics with any other person. Do not drink alcohol while on narcotics. 5. Take stool softeners (Colace) or a water based laxative (Miralax) while taking narcotics. You may hold for loose stools. 6. Report any fevers greater than 100.5F, increase abdominal discomfort, drainage that looks like pus, increased redness or pain at the surgical site, or any vomiting. 7. Report any pain in the calves, shortness of breath, or rapid heartbeat. 8. Follow-up in the office as directed. 9. If you were prescribed antibiotics, do not stop them without talking to your provider.
== END 2017-12-26 11:42 | disposition home or self-care (01) ==
LOC: 3ANU 21:07 → EMEROO 21:07 → 3ANU 12-25 01:44
PROVIDERS: ADMIT Surgery; ATTEND Surgery